=== PATIENT | female | born 1985 | race Caucasian/White ===

== ENCOUNTER 2019-06-23 11:04 | Emergency (ER) | payer MEDICAID ==
[2019-06-23] MEDS ORDERED: KETOROLAC 30 MG/ML VIAL IVP ONE (11:25)
[2019-06-23] MEDS ORDERED: METOCLOPRAMIDE HCL 10 MG/2 ML VIAL IVP ONE (11:25)
[2019-06-23] MEDS ORDERED: 0.9 % SODIUM CHLORIDE 1,000 ML BAG IV ONE (11:25)
[2019-06-23] MEDS ORDERED: DIPHENHYDRAMINE HCL 50 MG/ML VIAL IVP ONE (11:25)
--- NOTE | 2019-06-23 11:25 | Emergency Department Record ---
History of Present Illness - General Chief Complaint: Headache Migraine Stated Complaint: HEADACHE Time Seen by Provider: 06/23/19 11:14 Source: Patient Mode of Arrival: Ambulatory Limitations: No limitations - History of Present Illness Initial Comments: 34 yo female presents with a headache that started at work today about 4 hours ago. She does report a history of migraines. She denies any recent illness, trauma or changes in her health. She is sensitive to light. No vision changes. No speech changes. No weakness, dizziness, or coordination changes. No fever. Gradual onset. Throbs. Mild nausea. No neck pain. Not maximal at onset. Hx of migraines. She did not take anything prior to arrival from work. MD Complaint: Headache, "Migraine" -: Hour(s) Onset Description: Gradual Location: Frontal Severity: Moderate Quality: Aching Consistency: Constant Improves With: Nothing Worsens With: Light Context: Other Associated Symptoms: Photophobia Other Symptoms: Other Treatments Prior to Arrival: Other - Related Data Home Medications Medication Instructions Recorded Confirmed Last Taken No Home Med [NO HOME MEDS] 06/23/19 06/23/19 Unknown Allergies Allergy/AdvReac Type Severity Reaction Status Date / Time Latex, Natural Rubber Allergy Severe Rash Verified 06/23/19 11:18 Review of Systems Constitutional: Denies: Chills, Fever, Malaise, Weakness Eyes: Reports: Photophobia. Denies: Eye discharge, Vision change ENT: Reports: Congestion. Denies: Epistaxis, Throat pain Respiratory: Denies: Cough, Dyspnea Cardiovascular: Denies: Chest pain, Edema, Palpitations Endocrine: Denies: Fatigue, Polydipsia, Polyuria Gastrointestinal: Denies: Abdominal pain, Constipation Genitourinary: Denies: Dysuria, Urgency Musculoskeletal: Denies: Arthralgia, Back pain, Joint swelling, Myalgia Skin: Denies: Bruising, Change in color, Rash Neurological: Reports: As per HPI, Headache. Denies: Abnormal gait, Confusion, Numbness, Paresthesias, Seizure, Tingling, Tremors, Vertigo, Weakness Psychiatric: Denies: Anxiety Hematological/Lymphatic: Denies: Easy bleeding, Easy bruising Past Medical History - SOCIAL HISTORY Smoking Status: Never smoker Drug Use: None - RESPIRATORY Hx Respiratory Disorders: No - CARDIOVASCULAR Hx Cardio Disorders: No - NEURO Hx Neuro Disorders: No - GI Hx GI Disorders: No - Hx Genitourinary Disorders: No - ENDOCRINE Hx Endocrine Disorders: No - MUSCULOSKELETAL Hx Musculoskeletal Disorders: No - PSYCH Hx Psych Problems: No - HEMATOLOGY/ONCOLOGY Hx Hematology/Oncology Disorders: No Physical Exam - General General Appearance: Alert, Oriented x3, Cooperative, No acute distress, Other (Well appearing, normal ambulation, conversational) Limitations: No limitations - Head Head exam: Atraumatic, Normocephalic, Normal inspection - Eye Eye exam: Normal appearance, PERRL, EOMI. negative: Conjunctival injection, Nystagmus, Scleral icterus - ENT ENT exam: Normal exam, Mucous membranes moist Ear exam: Normal external inspection Nasal Exam: Normal inspection Mouth exam: Normal external inspection - Neck Neck exam: Normal inspection, Full ROM. negative: Meningismus, Tenderness - Respiratory Respiratory exam: Normal lung sounds bilaterally. negative: Rhonchi, Stridor, Wheezes - Cardiovascular Cardiovascular Exam: Regular rate, Normal rhythm, Normal heart sounds - GI/Abdominal GI/Abdominal exam: Soft. negative: Tenderness - Rectal Rectal exam: Deferred - exam: Deferred - Extremities Extremities exam: Normal inspection, Full ROM. negative: Pedal edema, Tenderness - Back Back exam: Reports: Full ROM - Neurological Neurological exam: Alert, CN II-XII intact, Normal gait, Oriented X3, Reflexes normal, Other (Normal FTN, No drift, No ataxia). negative: Abnormal gait, Altered, Motor sensory deficit - Psychiatric Psychiatric exam: Normal affect, Normal mood. negative: Agitated, Anxious - Skin Skin exam: Dry, Intact, Normal color, Warm Course - Reevaluation(s) Reevaluation #1: Mild to moderate frontal throb No maximal at onset. No neck pain. Not consistent with SAH, trauma, infection, other serious cause 06/23/19 11:28 06/23/19 12:01 The patient is doing much better. The headache is nearly resolved and the light sensitivity is gone 06/23/19 12:27 The patient is doing well and is comfortable with DC. DC vitals were reviewed. We discussed at length reasons to immediately return to the ED as well as close follow up. Disposition Disposition: Discharge Clinical Impression: Headache Qualifiers: Headache type: unspecified Headache chronicity pattern: acute headache Intractability: not intractable Qualified Code(s): R51 - Headache Disposition: Home, Self-Care Condition: (1) Good Instructions: Acute Headache (ED) Additional Instructions: Call your doctor for the next available follow up appointment Return to the ER for a recheck if worse, any new concerns or questions Rest and stay well hydrated today Forms: Patient Portal Access Time of Disposition: 12:01 Quality - Quality Measures Quality Measures: N/A - Blood Pressure Screening Does Patient Have Any of the Following: No Blood Pressure Classification: Normal BP Reading Systolic Measurement: 116 Diastolic Measurement: 73 Screening for High Blood Pressure: < Normal BP, F/U Not Required > [G8783]
== END 2019-06-23 12:36 | disposition home or self-care (01) ==
LOC: ER 11:04
DX: R51 Headache (principal); H53.149 Visual discomfort, unspecified; R11.0 Nausea
CPT/HCPCS: 96374; 96375; 99284; J1200; J1885; J2765; J7030

== ENCOUNTER 2019-07-06 08:54 | Emergency (ER) | payer MEDICAID ==
--- NOTE | 2019-07-06 09:32 | Emergency Department Record ---
History of Present Illness - General Chief Complaint: Headache Migraine Stated Complaint: HEADACHE Time Seen by Provider: 07/06/19 09:14 Source: Patient Mode of Arrival: Ambulatory Limitations: No limitations - History of Present Illness Initial Comments: pt states she missed work today and needs a work note. she denies being sick. she states she fears catching stds in the bathroom and that shes going to go back to [employer]. she denies any symptoms. she had ear pain yesterday but not today. she states she turned in her 2 wks already and that she has been working every day. Onset/Timin -: Days(s) Treatments Prior to Arrival: None - Related Data Allergies Allergy/AdvReac Type Severity Reaction Status Date / Time Latex, Natural Rubber Allergy Severe Rash Verified 06/23/19 11:18 Travel Screening - Travel/Exposure Within Last 30 Days Have you traveled within the last 30 days?: No - Travel/Exposure Within Last Year Have you traveled outside the [place] in the last year?: No - Additonal Travel Details Have you been exposed to anyone with a communicable illness?: No - Travel Symptoms Symptom Screening: None Review of Systems Reviewed: No additional complaints except as noted below Constitutional: Reports: As per HPI. Denies: Chills, Fever, Malaise, Night sweats, Weakness, Weight change Eyes: Reports: As per HPI. Denies: Eye discharge, Eye pain, Photophobia, Vision change ENT: Reports: As per HPI. Denies: Congestion, Dental pain, Ear pain, Epistaxis, Hearing loss, Throat pain Respiratory: Reports: As per HPI. Denies: Cough, Dyspnea, Hemoptysis, Stridor, Wheezes Cardiovascular: Reports: As per HPI. Denies: Arrhythmia, Chest pain, Dyspnea on exertion, Edema, Murmurs, Orthopnea, Palpitations, Paroxysmal nocturnal dyspnea, Rheumatic Fever, Syncope Endocrine: Reports: As per HPI. Denies: Fatigue, Heat or cold intolerance, Polydipsia, Polyuria Gastrointestinal: Reports: As per HPI. Denies: Abdominal pain, Constipation, Diarrhea, Hematemesis, Hematochezia, Melena, Nausea, Vomiting Genitourinary: Reports: As per HPI. Denies: Abnormal menses, Discharge, Dyspareunia, Dysuria, Frequency, Hematuria, Incontinence, Retention, Urgency Musculoskeletal: Reports: As per HPI. Denies: Arthralgia, Back pain, Gout, Joint swelling, Myalgia, Neck pain Skin: Reports: As per HPI. Denies: Bruising, Change in color, Change in hair/nails, Lesions, Pruritus, Rash Neurological: Reports: As per HPI. Denies: Abnormal gait, Confusion, Headache, Numbness, Paresthesias, Seizure, Tingling, Tremors, Vertigo, Weakness Psychiatric: Reports: As per HPI. Denies: Anxiety, Auditory hallucinations, Depression, Homicidal thoughts, Suicidal thoughts, Visual hallucinations Hematological/Lymphatic: Reports: As per HPI. Denies: Anemia, Blood Clots, Easy bleeding, Easy bruising, Swollen glands Past Medical History - SOCIAL HISTORY Smoking Status: Never smoker Alcohol Use: None Drug Use: None - RESPIRATORY Hx Respiratory Disorders: No - CARDIOVASCULAR Hx Cardio Disorders: No - NEURO Hx Neuro Disorders: No - GI Hx GI Disorders: No - Hx Genitourinary Disorders: No - ENDOCRINE Hx Endocrine Disorders: No - MUSCULOSKELETAL Hx Musculoskeletal Disorders: No - PSYCH Hx Psych Problems: No - HEMATOLOGY/ONCOLOGY Hx Hematology/Oncology Disorders: No Family Medical History Any Significant Family History?: No Physical Exam - General General Appearance: Alert, Oriented x3, Cooperative, No acute distress - Head Head exam: Normal inspection - Eye Eye exam: Normal appearance, PERRL, EOMI Pupils: Normal accommodation - ENT ENT exam: Normal exam, Mucous membranes moist, Normal external ear exam, Normal orophraynx, TM's normal bilaterally Ear exam: Normal external inspection. negative: External canal tenderness Nasal Exam: Normal inspection. negative: Discharge, Sinus tenderness Mouth exam: Normal external inspection, Tongue normal Teeth exam: Normal inspection. negative: Dental caries Throat exam: Normal inspection. negative: Tonsillar erythema, Tonsillar exudate - Neck Neck exam: Normal inspection, Full ROM. negative: Tenderness - Respiratory Respiratory exam: Normal lung sounds bilaterally. negative: Respiratory distress - Cardiovascular Cardiovascular Exam: Regular rate, Normal rhythm, Normal heart sounds - GI/Abdominal GI/Abdominal exam: Soft, Normal bowel sounds. negative: Tenderness - Rectal Rectal exam: Deferred - exam: Deferred - Extremities Extremities exam: Normal inspection, Full ROM, Normal capillary refill. negative: Tenderness - Back Back exam: Reports: Normal inspection, Full ROM. Denies: Muscle spasm, Rash noted, Tenderness - Neurological Neurological exam: Alert, CN II-XII intact, Normal gait, Oriented X3 - Psychiatric Psychiatric exam: Normal affect, Normal mood - Skin Skin exam: Dry, Intact, Normal color, Warm Course Vital Signs 07/06/19 09:03 Temperature 97.9 F Pulse Rate 64 Respiratory 20 Rate Blood Pressure 106/76 Pulse Ox 97 - Reevaluation(s) Reevaluation #1: 07/06/19 09:32 it was explained to pt that we cannot give work excuses just because you dont want to go to work. we give excuses to people that are too ill to work. i s ympathized w her work frustration and apologized that i cant write an excuse if she has no complaints or illness Disposition Disposition: Discharge Clinical Impression: Well adult exam, Anxiety Disposition: Home, Self-Care Condition: (1) Good Instructions: Anxiety (ED) Additional Instructions: follow up with family doctor. return sooner if worse Quality - Quality Measures Quality Measures: N/A - Blood Pressure Screening Does Patient Have Any of the Following: No Blood Pressure Classification: Normal BP Reading Systolic Measurement: 106 Diastolic Measurement: 76 Screening for High Blood Pressure: < Normal BP, F/U Not Required > [G8783]
== END 2019-07-06 09:40 | disposition home or self-care (01) ==
LOC: ER 08:54
DX: F41.9 Anxiety disorder, unspecified (principal); Z00.00 Encounter for general adult medical examination without abnormal findings
CPT/HCPCS: 99282

== ENCOUNTER 2019-10-18 21:02 | Emergency (ER) | payer MEDICAID ==
[2019-10-18] MEDS ORDERED: AZITHROMYCIN 500 MG TABLET PO ONE (21:38)
--- NOTE | 2019-10-18 21:44 | Emergency Department Record ---
History of Present Illness - General Chief complaint: ENT Stated complaint: EAR PAIN Time Seen by Provider: 10/18/19 21:30 Source: Patient Mode of Arrival: Ambulatory Limitations: No limitations - History of Present Illness Initial comments: pt c/o ear pain, sore throat, yellow rhinitis. no fever MD complaint: Ear pain, Sore throat Onset/Timin -: Days(s) Location: R ear, L ear Severity: Moderate Severity scale (1-10): 5 Quality: Sharp Consistency: Constant Improves with: None Worsens with: None Associated Symptoms: Pain with swallowing, Rhinorrhea, Sore throat - Related Data Previous Rx's Medication Instructions Recorded Azithromycin [Zithromax] 250 mg PO DAILY #4 tab 10/18/19 Allergies Allergy/AdvReac Type Severity Reaction Status Date / Time Latex, Natural Rubber Allergy Severe Rash Verified 06/23/19 11:18 Travel Screening - Travel/Exposure Within Last 30 Days Have you traveled within the last 30 days?: No - Travel/Exposure Within Last Year Have you traveled outside the [place] in the last year?: No - Additonal Travel Details Have you been exposed to anyone with a communicable illness?: No - Travel Symptoms Symptom Screening: None Review of Systems Reviewed: No additional complaints except as noted below Constitutional: Reports: As per HPI. Denies: Chills, Fever, Malaise, Night sweats, Weakness, Weight change Eyes: Reports: As per HPI. Denies: Eye discharge, Eye pain, Photophobia, Vision change ENT: Reports: As per HPI. Denies: Congestion, Dental pain, Ear pain, Epistaxis, Hearing loss, Throat pain Respiratory: Reports: As per HPI. Denies: Cough, Dyspnea, Hemoptysis, Stridor, Wheezes Cardiovascular: Reports: As per HPI. Denies: Arrhythmia, Chest pain, Dyspnea on exertion, Edema, Murmurs, Orthopnea, Palpitations, Paroxysmal nocturnal dyspnea, Rheumatic Fever, Syncope Endocrine: Reports: As per HPI. Denies: Fatigue, Heat or cold intolerance, Polydipsia, Polyuria Gastrointestinal: Reports: As per HPI. Denies: Abdominal pain, Constipation, Diarrhea, Hematemesis, Hematochezia, Melena, Nausea, Vomiting Genitourinary: Reports: As per HPI. Denies: Abnormal menses, Discharge, Dyspareunia, Dysuria, Frequency, Hematuria, Incontinence, Retention, Urgency Musculoskeletal: Reports: As per HPI. Denies: Arthralgia, Back pain, Gout, Joint swelling, Myalgia, Neck pain Skin: Reports: As per HPI. Denies: Bruising, Change in color, Change in hair/nails, Lesions, Pruritus, Rash Neurological: Reports: As per HPI. Denies: Abnormal gait, Confusion, Headache, Numbness, Paresthesias, Seizure, Tingling, Tremors, Vertigo, Weakness Psychiatric: Reports: As per HPI. Denies: Anxiety, Auditory hallucinations, Depression, Homicidal thoughts, Suicidal thoughts, Visual hallucinations Hematological/Lymphatic: Reports: As per HPI. Denies: Anemia, Blood Clots, Easy bleeding, Easy bruising, Swollen glands Past Medical History - SOCIAL HISTORY Smoking Status: Never smoker Alcohol Use: None Drug Use: Occasional Drug Use Detail:: Marijuana - RESPIRATORY Hx Respiratory Disorders: No - CARDIOVASCULAR Hx Cardio Disorders: No - NEURO Hx Neuro Disorders: No - GI Hx GI Disorders: No Hx of Polyps: Yes - Hx Genitourinary Disorders: No - ENDOCRINE Hx Endocrine Disorders: No - MUSCULOSKELETAL Hx Musculoskeletal Disorders: No - PSYCH Hx Psych Problems: No - HEMATOLOGY/ONCOLOGY Hx Hematology/Oncology Disorders: No Family Medical History Any Significant Family History?: No Physical Exam - General General Appearance: Alert, Oriented x3, Cooperative, No acute distress - Head Head exam: Normal inspection - Eye Eye exam: Normal appearance, PERRL, EOMI Pupils: Normal accommodation - ENT ENT exam: Normal exam, Mucous membranes moist, Normal external ear exam, Normal orophraynx, TM's normal bilaterally Ear exam: Normal external inspection. negative: External canal tenderness Nasal Exam: Normal inspection. negative: Discharge, Sinus tenderness Mouth exam: Normal external inspection, Tongue normal Teeth exam: Normal inspection. negative: Dental caries Throat exam: Normal inspection, Tonsillar erythema. negative: Tonsillar exudate - Neck Neck exam: Normal inspection, Full ROM. negative: Tenderness - Respiratory Respiratory exam: Normal lung sounds bilaterally. negative: Respiratory distress - Cardiovascular Cardiovascular Exam: Regular rate, Normal rhythm, Normal heart sounds - GI/Abdominal GI/Abdominal exam: Soft, Normal bowel sounds. negative: Tenderness - Rectal Rectal exam: Deferred - exam: Deferred - Extremities Extremities exam: Normal inspection, Full ROM, Normal capillary refill. negative: Tenderness - Back Back exam: Reports: Normal inspection, Full ROM. Denies: Muscle spasm, Rash noted, Tenderness - Neurological Neurological exam: Alert, CN II-XII intact, Normal gait, Oriented X3 - Psychiatric Psychiatric exam: Normal affect, Normal mood - Skin Skin exam: Dry, Intact, Normal color, Warm Course Vital Signs 10/18/19 21:11 Temperature 98.8 F Pulse Rate [ 77 Left] Respiratory 16 Rate Blood Pressure 112/74 [Left Arm] Pulse Ox 98 Disposition Disposition: Discharge Clinical Impression: Sinusitis Qualifiers: Sinusitis location: unspecified location Chronicity: acute Recurrence: non- recurrent Qualified Code(s): J01.90 - Acute sinusitis, unspecified Pharyngitis Qualifiers: Pharyngitis/tonsillitis etiology: unspecified etiology Qualified Code(s): J02.9 - Acute pharyngitis, unspecified Disposition: Home, Self-Care Condition: (1) Good Instructions: Sinusitis (ED), Pharyngitis (ED) Additional Instructions: follow up with family doctor. return sooner if worse. tylenol and motrin as needed Prescriptions: Azithromycin [Zithromax] 250 mg PO DAILY #4 tab Quality - Quality Measures Quality Measures: Adult Sinusitis (>18yr) - Adult Sinusitis: Abx Overuse Quality Measure: Measure #331: Adult Sinusitis Abx Overuse Onset of symptoms over 10 days: Yes Presumed Bacterial: Yes Antibiotic Prescribed: Yes Adult Sinusitis: Antibiotic Within 10 Days of Symptoms: <Antibiotic NOT Prescribed Within 10 Days> [G9287] Reason for Prescription: Presumed Bacterial - Adult Sinusitis: Bacterial w/Abx Quality Measure: Measure #332: Adult Bacterial Sinusitis Correct Abx Use Adult Sinusitis: Appropriate Antibiotic: Exclusion, Not Bacterial - Adult Sinusitis: CT Use Quality Measure: Measure #333: Adult Sinusitis Adult Sinusitis: CT for Acute Sinusitis: < CT NOT ordered or received within 28 Days > [G9350] - Blood Pressure Screening Does Patient Have Any of the Following: No Blood Pressure Classification: Normal BP Reading Systolic Measurement: 112 Diastolic Measurement: 74 Screening for High Blood Pressure: < Normal BP, F/U Not Required > [G8783]
== END 2019-10-18 22:01 | disposition home or self-care (01) ==
LOC: ER 21:02
DX: J02.9 Acute pharyngitis, unspecified (principal); J01.90 Acute sinusitis, unspecified; H92.03 Otalgia, bilateral
CPT/HCPCS: 99283